=== PATIENT | female | born 1965 | race Caucasian/White ===

== ENCOUNTER → 2020-10-02 | Outpatient (CLI) | payer BC ==
[~2020-10-02] MED LIST: HYDR25TA PO; LISI20TA24 PO; METO25TA6 PO
== END | disposition home or self-care (01) ==
LOC: RAH 10:49
PROVIDERS: ATTEND Internal Medicine Critical Care Medicine
DX: I70.293 Other atherosclerosis of native arteries of extremities, bilateral legs (principal)
CPT/HCPCS: 93925

== ENCOUNTER → 2022-03-11 | Outpatient (CLI) | payer BC | END | disposition home or self-care (01) | LOC: RAH 09:24 | PROVIDERS: ATTEND Physical Medicine & Rehabilitation | DX: R26.0 Ataxic gait (principal) | CPT/HCPCS: 70551 ==

== ENCOUNTER → 2022-12-23 | Outpatient (CLI) | payer OTHER | END | disposition home or self-care (01) | LOC: OIH 10:01 | PROVIDERS: ATTEND Internal Medicine Critical Care Medicine | DX: Z13.6 Encounter for screening for cardiovascular disorders (principal) | CPT/HCPCS: 75571 ==